=== PATIENT | male | born 1940 | race African-American/Black ===

== ENCOUNTER 2017-09-19 10:29 | Observation (INO) | payer MEDICARE ==
[~2017-09-19] VITALS: Ht 180.3 cm; Wt 96.8 kg
[2017-09-19] MEDS ORDERED: TADA10TA PO (11:44)
[2017-09-19] MEDS ORDERED: ROSU5 PO (11:44)
[2017-09-19] MEDS ORDERED: METOPROLOL SUCCINATE PO (11:44)
[2017-09-19] MEDS ORDERED: TOPROL XL200 MG PO (11:44)
[2017-09-19] MEDS ORDERED: ROSU5 (11:44)
[2017-09-19] MEDS ORDERED: Aciphex20 MG PO (11:44)
[2017-09-19] MEDS ORDERED: HCTZ PO (11:45)
[2017-09-19] MEDS ORDERED: IRBESAR PO (11:45)
[2017-09-19 11:55] LABS: BASOPHILS ABSOLUTE AUTO 0.03 K/mm3 (0.00-0.23); BASOPHILS PERCENT AUTO 1 % (0-2); EOSINOPHILS ABSOLUTE AUTO 0.08 K/mm3 (0.00-0.68); EOSINOPHILS PERCENT AUTO 2 % (0-6); Hematocrit 48.5 % (37.0-53.0); Hemoglobin 16.3 g/dL (13.5-17.5); IMMATURE GRAN ABSOLUTE AUTO 0.02 K/mm3 (0.00-0.10); IMMATURE GRAN PERCENT AUTO 1 % (0-1); LYMPHOCYTES ABSOLUTE AUTO 1.16 K/mm3 (0.84-5.20); LYMPHOCYTES PERCENT AUTO 28 % (21-46); MONOCYTES ABSOLUTE AUTO 0.61 K/mm3 (0.16-1.47); MONOCYTES PERCENT AUTO 15 % (4-13); Mean Corpuscular HGB Conc 33.6 g/dL (31.5-36.5); Mean Corpuscular Volume 86 fL (80-100); Mean Platelet Volume 9.7 fL (9.1-12.4); NEUTROPHILS ABSOLUTE AUTO 2.24 K/mm3 (1.96-9.15); NEUTROPHILS PERCENT AUTO 54 % (41-73); Platelet Count 160 K/mm3 (150-400); RDW Coefficient Variation 14.1 % (11.7-14.2); RDW Standard Deviation 45.3 fL (35.1-46.3); Red Blood Cell Count 5.62 M/mm3 (4.30-5.90); White Blood Cell Count 4.14 K/mm3 (4.00-11.30)
[2017-09-19 12:23] LABS: Alanine Aminotransfer (ALT/SGP 33 U/L (12-78); Albumin, Blood 3.9 g/dL (3.4-5.0); Alk Phos 80 U/L (50-136); Anion Gap 6 mmol/L (6-16); Aspartate Aminotrans (AST/SGOT 23 U/L (12-37); Bilirubin, Total 0.7 mg/dL (0.1-1.0); Blood Urea Nitrogen 11 mg/dL (8-24); Bun/Creatinine Ratio 11.2 (12.0-20.0); CO2, Blood 29 mmol/L (21-32); Calcium, Blood 8.8 mg/dL (8.5-10.1); Chloride, Blood 105 mmol/L (98-108); Creatinine, Blood 0.99 mg/dL (0.60-1.20); Globulin, Blood 3.9 g/dL (2.2-4.0); Glomerular Filtration Rate >60 (60-); Glucose, Blood 140 mg/dL (70-99); Potassium, Blood 3.8 mmol/L (3.5-5.5); Sodium, Blood 140 mmol/L (136-145); Total Protein, Blood 7.8 g/dL (6.4-8.2); Troponin I <0.015 ng/mL (0.000-0.040)
[2017-09-19 12:26] LABS: Thyroid Stimulating Hormone 0.438 uIU/mL (0.360-4.800)
[2017-09-19 13:20] LABS: U Amphetamine Screen Not Detected; U Barbituate Screen Not Detected; U Benzodiazapine Screen Not Detected; U Buprenorphine Screen Not Detected; U Cannabinoids Screen Not Detected; U Cocaine Screen Not Detected; U Methadone Screen Not Detected; U Methamphetamine Screen Not Detected; U Opiates Screen Not Detected; U Oxycodone Screen Not Detected; U Phencyclidine Screen Not Detected; U Propoxyphene Screen Not Detected
[2017-09-19] MEDS ORDERED: ASPI81CH PO (19:17)
[2017-09-20] MEDS ORDERED: ACTIVE-Q200 MG PO (08:37)
[2017-09-20] MEDS ORDERED: GLUCOSAMINE &1 EACH PO (08:40)
[2017-09-20] MEDS ORDERED: VALA500 PO (08:42)
== END 2017-09-20 09:30 | disposition home or self-care (01) ==
LOC: ER 10:29 → ICUW 10:30
PROVIDERS: Emergency Medicine
DX: I67.4 Hypertensive encephalopathy (principal); I16.0 Hypertensive urgency; E11.9 Type 2 diabetes mellitus without complications; E78.5 Hyperlipidemia, unspecified
CPT/HCPCS: 36415; 70450; 71046; 80053; 82947; 83735; 84443; 84484; 85025; 93005; 93010; 96365; 96374; 96375; 96376; 99285-25; G0378; J7060